=== PATIENT | female | born 1980 | race Caucasian/White ===

== ENCOUNTER → 2016-05-03 | Outpatient (CLI) | payer BC ==
--- NOTE | 2016-05-03 15:16 | XR ---
EXAMINATION TYPE: XR chest 2V DATE OF EXAM ORDERED: 05/03/2016 2:16 PM HISTORY: R05 Cough. REFERENCE: Previous study dated 10/18/2015. FINDINGS: The lungs are clear. Pleural spaces are clear. Heart size is normal. IMPRESSION: NORMAL CHEST.
== END | disposition home or self-care (01) ==
LOC: RADXRMAIN 13:58
PROVIDERS: ATTEND Pediatrics
DX: R05 Cough (principal)
CPT/HCPCS: 71020

== ENCOUNTER 2016-06-29 00:10 | Emergency (ER) | payer BC ==
[2016-06-29] MEDS ORDERED: KETOROLAC 60 MG/2 ML VIAL IM STA (01:18)
--- NOTE | 2016-06-29 01:18 | ED ---
Lower Extremity Injury HPI - General Chief Complaint: Extremity Injury, Lower Stated Complaint: L Leg/Groin Pain Time Seen by Provider: 06/29/16 00:27 Source: patient, RN notes reviewed, old records reviewed Mode of arrival: ambulatory Limitations: no limitations - History of Present Illness Initial Comments: This is a 35-year-old female with chief complaint of left thigh and groin pain. Patient states that she's had this pain a few weeks ago and then it somewhat when away. She reports that she had a massage yesterday and that seemed to make her pain worse. She denies any specific injury that caused the pain. She reports it's mainly over the medial and inner thigh. Denies any calf pain. Patient reports the pain is worse whenever she has to move her leg. Patient states that she's having a difficult time trying to ambulate. She states she did take some Motrin earlier today. She also took Flexeril. Denies any fever or chills, dysuria or hematuria. She denies any tea-colored urine. He denies any other areas of injury or pain.Patient denies any recent fever, chills, shortness of breath, chest pain, back pain, abdominal pain, nausea vomiting, numbness or tingling, dysuria or hematuria, constipation or diarrhea, headaches or visual changes, or any other current symptoms - Related Data Home Medications Medication Instructions Recorded Confirmed Levothyroxine Sodium [Synthroid] 175 mcg PO DAILY 06/24/14 06/29/16 Aspirin 324 mg PO DAILY PRN 10/18/15 06/29/16 Fluticasone Nasal [place] [Flonase 1 spray EA NOSTRIL DAILY PRN 10/18/15 06/29/16 Nasal [place]] Ibuprofen [Motrin] 200 - 400 mg PO Q6HR PRN 10/18/15 06/29/16 Previous Rx's Medication Instructions Recorded Acetaminophen-Codeine 300-30mg 1 tab PO Q4H PRN #12 tablet 06/29/16 [Tylenol #3] Ondansetron Odt [Zofran Odt] 4 mg PO Q8HR PRN #12 tab 06/29/16 Allergies Allergy/AdvReac Type Severity Reaction Status Date / Time moxifloxacin HCl AdvReac Nausea & Verified 06/29/16 00:16 [From Avelox] Vomiting Review of Systems ROS Statement: Those systems with pertinent positive or pertinent negative responses have been documented in the HPI. ROS Other: All systems not noted in ROS Statement are negative. Past Medical History Past Medical History: Thyroid Disorder Additional Past Medical History / Comment(s): depression History of Any Multi-Drug Resistant Organisms: None Reported Past Surgical History: Section, Orthopedic Surgery Past Psychological History: Depression Smoking Status: Never smoker Past Alcohol Use History: None Reported Past Drug Use History: None Reported General Exam - General Exam Comments Initial Comments: Is a 35-year-old female. Patient does not appear to be in any acute distress. Limitations: no limitations General appearance: alert, in no apparent distress Head exam: Present: atraumatic, normocephalic, normal inspection Eye exam: Present: normal appearance, PERRL, EOMI. Absent: scleral icterus, conjunctival injection, periorbital swelling ENT exam: Present: normal exam, mucous membranes moist Neck exam: Present: normal inspection. Absent: tenderness, meningismus, lymphadenopathy Respiratory exam: Present: normal lung sounds bilaterally. Absent: respiratory distress, wheezes, rales, rhonchi, stridor Cardiovascular Exam: Present: regular rate, normal rhythm, normal heart sounds. Absent: systolic murmur, diastolic murmur, rubs, gallop, clicks GI/Abdominal exam: Present: soft, normal bowel sounds. Absent: distended, tenderness, guarding, rebound, rigid Extremities exam: Present: normal inspection, full ROM, normal capillary refill. Absent: tenderness, pedal edema, joint swelling, calf tenderness Left Hip exam: Present: normal inspection, tenderness (Patient has pain and tenderness over the medial thigh inguinal region.). Absent: full ROM (Limited range of motion over the left hip and groin area due to pain.) Upper Leg exam: Present: normal inspection Knee exam: Present: normal inspection, full ROM Lower Leg exam: Present: normal inspection, full ROM Ankle exam: Present: normal inspection, full ROM Foot/Toe exam: Present: normal inspection, full ROM Neurovascular tendon exam: Present: no vascular compromise Gait: observed and normal Back exam: Present: normal inspection Neurological exam: Present: alert, oriented X3, CN II-XII intact Psychiatric exam: Present: normal affect, normal mood Skin exam: Present: warm, dry, intact, normal color. Absent: rash Course Vital Signs 06/29/16 06/29/16 00:13 02:00 Temperature 98.7 F 98.6 F Pulse Rate 109 H 98 Respiratory 20 18 Rate Blood Pressure 130/76 140/65 O2 Sat by Pulse 99 96 Oximetry Medical Decision Making - Medical Decision Making This is a 35-year-old female with a few days of left groin pain with motion. She denies any swelling or pain with palpation over the area. Only with movement. She did have massage today which made the pain worse. Patient received a femur x-ray which was negative. Urinalysis does show significant amount of red blood cells however patient is on her menstrual cycle. Patient will be discharged after receiving IM Toradol. Discussed that I can write her for Tylenol codeine that might help more with the pain as well as to apply ice or the area. Discussed follow up with an orthopedic physician or primary care provider. Patient agrees treatment plan will comply. Return parameters were discussed. Patient will also be given a Zofran starter pack and Tylenol 3 starter pack for pain which she can take with to go home with. - Lab Data Lab Results 06/29/16 Range/Units 00:13 Urine Color Yellow Urine Appearance Clear (Clear) Urine pH 6.0 (5.0-8.0) Ur Specific [place] 1.010 (1.001-1.035) Urine Protein Negative (Negative) Urine Glucose (UA) Negative (Negative) Urine Ketones Negative (Negative) Urine Blood Large H (Negative) Urine Nitrite Negative (Negative) Urine Bilirubin Negative (Negative) Urine Urobilinogen <2.0 (<2.0) mg/dL Ur Leukocyte Esterase Small H (Negative) Urine RBC 81 H (0-5) /hpf Urine WBC 10 H (0-5) /hpf Ur Squamous Epith Cells 1 (0-4) /hpf Urine Bacteria Rare H (None) /hpf Urine Mucus Rare H (None) /hpf - Radiology Data Radiology results: report reviewed Femur was x-rayed and negative for any acute process. Disposition Clinical Impression: Strain of adductor joni muscle of left lower extremity Disposition: HOME SELF-CARE Condition: Good Instructions: Groin Strain (ED) Additional Instructions: Patient advised to follow-up with orthopedic physician of symptoms continue to persist. Apply heat and ice over the area. Patient should also take anti- inflammatory medication such as Motrin. Patient needs to rest, take pain medication and muscle relaxers at home. Prescriptions: Acetaminophen-Codeine 300-30mg [Tylenol #3] 1 tab PO Q4H PRN #12 tablet PRN Reason: Pain Ondansetron Odt [Zofran Odt] 4 mg PO Q8HR PRN #12 tab PRN Reason: Nausea Referrals: Kb Brewer MD [Primary Care Provider] - 1-2 days Time of Disposition: 01:45
[2016-06-29 01:20] LABS: Appearance,Urine Clear (Clear); Bacteria,Urine Rare /hpf; Bilirubin,Urine Negative (Negative); Glucose,Urine (UA) Negative (Negative); Ketones,Urine Negative (Negative); Leukocyte Esterase,Urine Small (Negative); Mucus,Urine Rare /hpf; Nitrite,Urine Negative (Negative); Particle Count 3826; Protein,Urine Negative (Negative); RBC,Urine 81 /hpf (0-5); Squamous Epithelial Cell,Urine 1 /hpf (0-4); UA Billing (MACRO vs. MICRO) MICRO; Urobilinogen,Urine <2.0 mg/dL (<2.0); WBC,Urine 10 /hpf (0-5)
--- NOTE | 2016-06-29 01:36 | XR ---
EXAM: XR Left Femur, 2 Views CLINICAL HISTORY: Reason: Pain TECHNIQUE: Frontal and lateral views of the left femur. COMPARISON: No relevant prior studies available. FINDINGS: Bones/joints: No evidence of fracture, dislocation or bony erosion. Soft tissues: Soft tissues are radiographically unremarkable. No evidence of knee joint effusion. IMPRESSION: No significant femoral bony abnormalities.
[2016-06-29] MEDS ORDERED: ONDANSETRON 4 MG ODT STARTER PACK 2 TAB BTL PO STA (01:45)
[2016-06-29] MEDS ORDERED: ACET/COD 300 MG/30 MG STARTER PACK 6 TAB BTL PO STA (01:45)
[2016-06-29 02:01] VITALS: BP 140/65; PULSE 98; RESP 18; TEMP 98.6
== END 2016-06-29 02:01 | disposition home or self-care (01) ==
LOC: EC 00:10
DX: S86.812A Strain of other muscle(s) and tendon(s) at lower leg level, left leg, initial encounter (principal); E07.9 Disorder of thyroid, unspecified; Z79.899 Other long term (current) drug therapy; Z88.1 Allergy status to other antibiotic agents; X58.XXXA Exposure to other specified factors, initial encounter
CPT/HCPCS: 81001; 73552; 99284; 96372; J1885; S0119

== ENCOUNTER 2017-09-14 04:23 | Emergency (ER) | payer BC ==
[2017-09-14] MEDS ORDERED: ONDANSETRON 4 MG/2 ML VIAL IVP STA (04:44)
[2017-09-14 05:05] LABS: Anisocytosis Slight; Basophils % (A) 0 %; Eosinophils % (A) 1 %; HCT 34.3 % (34.0-46.0); HGB 10.9 gm/dL (11.4-16.0); Lymphocytes % (A) 22 %; MCH 23.6 pg (25.0-35.0); MCHC 31.6 g/dL (31.0-37.0); MCV 74.5 fL (80.0-100.0); Mean Platelet Volume 6.9; Microcytosis Slight; Monocytes # (A) 0.6 k/uL (0-1.0); Monocytes % (A) 6 %; Neutrophils # (A) 6.1 k/uL (1.3-7.7); Neutrophils % (A) 69 %; Platelet Count 224 k/uL (150-450); RBC 4.61 m/uL (3.80-5.40); RDW 16.1 % (11.5-15.5); WBC 8.9 k/uL (3.8-10.6)
[2017-09-14 05:19] LABS: INR 1.1 (<1.2); Partial Thromboplastin Time 24.5 sec (22.0-30.0); Prothrombin Time 10.6 sec (9.0-12.0)
[2017-09-14 05:22] LABS: ALT 55 U/L (9-52); AST 45 U/L (14-36); Albumin 4.4 g/dL (3.5-5.0); Alkaline Phosphatase 105 U/L (38-126); Amylase 47 U/L (30-110); Anion Gap 12 mmol/L; Blood Urea Nitrogen 14 mg/dL (7-17); Carbon Dioxide 22 mmol/L (22-30); Chloride 105 mmol/L (98-107); Glucose 171 mg/dL (74-99); Lipase 85 U/L (23-300); Potassium 4.5 mmol/L (3.5-5.1); Sodium 139 mmol/L (137-145); Total Bilirubin 0.4 mg/dL (0.2-1.3); Total Protein 7.5 g/dL (6.3-8.2)
--- NOTE | 2017-09-14 05:23 | ED ---
Chest Pain HPI - General Source: patient Mode of arrival: wheelchair Limitations: no limitations - History of Present Illness MD Complaint: other (Epigastric pain) Onset/Timin -: hour(s) Onset: after eating Pain Location: epigastric Pain Radiation: back Severity: moderate Quality: aching Consistency: constant Improves With: nothing Worsens With: nothing Anginal Symptoms: nausea, vomiting Treatments Prior to Arrival: none <Carmelo Fritz - Last Filed: 09/14/17 05:21> <Ryan Arias - Last Filed: 09/14/17 08:18> - General Chief Complaint: Chest Pain Stated Complaint: Nausea/Abdominal Pain Time Seen by Provider: 09/14/17 04:30 - Related Data Home Medications Medication Instructions Recorded Confirmed Levothyroxine Sodium [Synthroid] 175 mcg PO DAILY 06/24/14 06/29/16 Aspirin 324 mg PO DAILY PRN 10/18/15 06/29/16 Fluticasone Nasal [place] [Flonase 1 spray EA NOSTRIL DAILY PRN 10/18/15 06/29/16 Nasal [place]] Ibuprofen [Motrin] 200 - 400 mg PO Q6HR PRN 10/18/15 06/29/16 Previous Rx's Medication Instructions Recorded Acetaminophen-Codeine 300-30mg 1 tab PO Q4H PRN #12 tablet 06/29/16 [Tylenol #3] Ondansetron Odt [Zofran Odt] 4 mg PO Q8HR PRN #12 tab 06/29/16 Allergies Allergy/AdvReac Type Severity Reaction Status Date / Time moxifloxacin HCl AdvReac Nausea & Verified 09/14/17 04:30 [From Avelox] Vomiting Review of Systems ROS Other: All systems not noted in ROS Statement are negative. Constitutional: Denies: fever, chills, weakness Respiratory: Denies: cough, dyspnea Cardiovascular: Reports: chest pain. Denies: palpitations, orthopnea, edema, syncope Gastrointestinal: Reports: nausea, vomiting. Denies: diarrhea, hematemesis, melena, hematochezia Genitourinary: Denies: dysuria, hematuria Musculoskeletal: Denies: back pain Skin: Denies: rash Neurological: Denies: headache, weakness, numbness <Carmelo Fritz - Last Filed: 09/14/17 05:21> ROS Other: All systems not noted in ROS Statement are negative. <Ryan Arias - Last Filed: 09/14/17 08:18> ROS Statement: Those systems with pertinent positive or pertinent negative responses have been documented in the HPI. EKG Findings - EKG Results: EKG: interpreted by ERMD, sinus rhythm (Rate 87 bpm), normal axis, normal ST/T - Blocks, [place], Hypertrophy, ST Abn: AV and intraventricular conduction: right bundle branch block (fixed/ intermittent, complete/incomplete) (Incomplete) <Carmelo Fritz - Last Filed: 09/14/17 05:21> Past Medical History Past Medical History: Diabetes Mellitus, Thyroid Disorder Additional Past Medical History / Comment(s): depression History of Any Multi-Drug Resistant Organisms: None Reported Past Surgical History: Section, Orthopedic Surgery Past Psychological History: Depression Smoking Status: Never smoker Past Alcohol Use History: None Reported Past Drug Use History: None Reported <Carmelo Fritz - Last Filed: 09/14/17 05:21> General Exam Limitations: no limitations General appearance: alert, in no apparent distress, obese Head exam: Present: atraumatic Eye exam: Present: normal appearance. Absent: scleral icterus, conjunctival injection ENT exam: Present: normal oropharynx Respiratory exam: Present: normal lung sounds bilaterally. Absent: respiratory distress, wheezes, rales, rhonchi, stridor Cardiovascular Exam: Present: regular rate, normal rhythm, normal heart sounds. Absent: systolic murmur, diastolic murmur, rubs, gallop GI/Abdominal exam: Present: soft, tenderness (Mild epigastric and right upper quadrant tenderness without rebound or guarding). Absent: distended, guarding, rebound, rigid, mass, pulsatile mass, hernia Extremities exam: Present: normal inspection, normal capillary refill. Absent: pedal edema, calf tenderness Back exam: Present: normal inspection. Absent: CVA tenderness (R), CVA tenderness (L) Neurological exam: Present: alert Skin exam: Present: warm, dry, intact, normal color. Absent: rash <Carmelo Fritz - Last Filed: 09/14/17 05:21> Vital Signs 09/14/17 09/14/17 04:27 06:14 Temperature 98.3 F 98.3 F Pulse Rate 93 100 Respiratory 17 18 Rate Blood Pressure 165/94 140/85 O2 Sat by Pulse 100 100 Oximetry Chest Pain MDM <JohnyCarmelo lugo - Last Filed: 09/14/17 05:21> <Ryan Arias - Last Filed: 09/14/17 08:18> - [facility] 37 female with epigastric pain and vomiting. Patient's care is signed out at shift change. She did complain of chest pain, when she points to her pain is predominantly epigastric. She states she had a fullness in her abdomen as well as several episodes of vomiting. Patient's symptoms are significantly improved without treatment at the time of my evaluation. She has not had pain medication or antiemetics. Patient's symptoms were constant for 15-16 hours prior to arrival. Troponin is negative which is very reassuring. Patient does have mildly elevated AST and ALT at 45 and 55. Ultrasound is obtained of the gallbladder which shows sludge and mildly dilated common bile duct with no apparent stone. Patient's symptoms did begin after eating. This likely indicates biliary colic. Patient is offered observation for both serial cardiac enzymes and general surgery consultation. She declines. She prefers outpatient follow-up. I have very low suspicion for anything cardiac in this patient. She will be discharged with outpatient general surgery follow-up. ( Ryan Arias) Disposition <Carmelo Fritz - Last Filed: 09/14/17 05:21> Is patient prescribed a controlled substance at d/c from ED?: No Time of Disposition: 08:18 <Ryan Arias - Last Filed: 09/14/17 08:18> Clinical Impression: Chest pain, Biliary colic Disposition: HOME SELF-CARE Condition: Good Instructions: Chest Pain (ED), Biliary Colic (ED) Referrals: Kb Brewer MD [Primary Care Provider] - 1-2 days Jhonatan Henley MD [Medical Doctor] - 1-2 days
[2017-09-14 05:26] LABS: Creatine Kinase 132 U/L (30-135)
[2017-09-14 05:39] LABS: Creatine Kinase MB 0.7 ng/mL (0.0-2.4); Troponin I <0.012 ng/mL (0.000-0.034)
--- NOTE | 2017-09-14 05:57 | XR ---
EXAMINATION TYPE: XR chest 1V portable DATE OF EXAM: 09/14/2017 COMPARISON: 05/03/2016 HISTORY: Pain TECHNIQUE: Single frontal view of the chest is obtained. FINDINGS: Heart and mediastinum are normal. Lungs are clear. Diaphragm is normal. Bony thorax appear s normal. IMPRESSION: Normal chest. No change.
--- NOTE | 2017-09-14 07:54 | US ---
EXAMINATION TYPE: US abdomen limited DATE OF EXAM: 09/14/2017 COMPARISON: NONE CLINICAL HISTORY: Pain, attention RUQ. nausea, left back pain EXAM MEASUREMENTS: Liver Length: 21.1 cm Gallbladder Wall: 0.2 cm CBD: 0.7 cm Right Kidney: 11.6 x 5.7 x 4.4 cm *overlying bowel gas limits exam along with habitus Pancreas: limited views seen appear wnl Liver: difficult to penetrate and enlarged Gallbladder: mobile sludge seen with no obvious stone present Evidence for sonographic Abad's sign: NO CBD: upper limits of normal for since Right Kidney: wnl Limited views of the pancreas are unremarkable. The liver is enlarged measuring 21 cm. It is echogenic and likely fatty infiltrated. There is sludge within the gallbladder. The gallbladder wall measures 2 mm. The distal common hepatic duct measures 7 mm. There is no evidence of a sonographic Abad's sign. The right kidney is unremarkable. IMPRESSION: GALLBLADDER SLUDGE WITH A DILATED DISTAL COMMON HEPATIC DUCT.
[2017-09-14 08:31] VITALS: BP 116/65; PULSE 76; RESP 16; TEMP 97.5
== END 2017-09-14 08:40 | disposition home or self-care (01) ==
LOC: EC 04:23
DX: K80.50 Calculus of bile duct without cholangitis or cholecystitis without obstruction (principal); R74.0 Nonspecific elevation of levels of transaminase and lactic acid dehydrogenase [LDH]; E07.9 Disorder of thyroid, unspecified; Z79.899 Other long term (current) drug therapy; Z88.1 Allergy status to other antibiotic agents; Z53.29 Procedure and treatment not carried out because of patient's decision for other reasons
CPT/HCPCS: 36415; 71045; 76705; 80053; 82150; 82550; 82553; 83690; 83735; 84484; 85025; 85610; 85730; 93005; 99285

== ENCOUNTER 2019-07-12 09:55 | Emergency (ER) | payer BC ==
[2019-07-12 10:01] VITALS: TEMP 98
[2019-07-12] MEDS ORDERED: ASPIRIN 81 MG PO STA (10:25)
[2019-07-12 10:27] LABS: Basophils % (A) 1 %; Eosinophils # (A) 0.1 k/uL (0-0.7); Eosinophils % (A) 2 %; HCT 36.3 % (34.0-46.0); HGB 11.3 gm/dL (11.4-16.0); Hypochromasia Slight; Lymphocytes # (A) 1.8 k/uL (1.0-4.8); Lymphocytes % (A) 23 %; MCH 23.7 pg (25.0-35.0); MCHC 31.1 g/dL (31.0-37.0); MCV 76.1 fL (80.0-100.0); Mean Platelet Volume 8.6; Microcytosis Slight; Monocytes # (A) 0.5 k/uL (0-1.0); Monocytes % (A) 6 %; Neutrophils # (A) 5.2 k/uL (1.3-7.7); Neutrophils % (A) 67 %; Platelet Count 243 k/uL (150-450); RBC 4.76 m/uL (3.80-5.40); RDW 15.9 % (11.5-15.5); WBC 7.8 k/uL (3.8-10.6)
--- NOTE | 2019-07-12 10:29 | XR ---
EXAMINATION TYPE: XR chest 2V DATE OF EXAM: 07/12/2019 COMPARISON: Prior chest x-ray 09/14/2017 HISTORY: Chest pain TECHNIQUE: Frontal and lateral views of the chest are obtained. FINDINGS: There is no focal air space opacity, pleural effusion, or pneumothorax seen. The cardiac silhouette size is within normal limits. There are overlying cardiac leads. The osseous structures a re intact. IMPRESSION: No acute cardiopulmonary process.
[2019-07-12 10:35] LABS: Partial Thromboplastin Time 24.7 sec (22.0-30.0); Prothrombin Time 10.4 sec (9.0-12.0)
[2019-07-12 10:39] LABS: ALT 64 U/L (4-34); AST 63 U/L (14-36); African American GFR (CKD) >90 (>60 ml/min/1.73 sqM); Albumin 4.5 g/dL (3.5-5.0); Alkaline Phosphatase 136 U/L (38-126); Anion Gap 10 mmol/L; Blood Urea Nitrogen 10 mg/dL (7-17); Calcium 9.5 mg/dL (8.4-10.2); Carbon Dioxide 23 mmol/L (22-30); Chloride 104 mmol/L (98-107); Glucose 197 mg/dL (74-99); Magnesium 2.2 mg/dL (1.6-2.3); Non-African American GFR(CKD) >90 (>60 ml/min/1.73 sqM); Potassium 4.5 mmol/L (3.5-5.1); Sodium 137 mmol/L (137-145); Total Bilirubin 0.4 mg/dL (0.2-1.3); Total Protein 7.9 g/dL (6.3-8.2)
--- NOTE | 2019-07-12 11:18 | ED ---
Chest Pain HPI - General Chief Complaint: Chest Pain Stated Complaint: Chest pain Time Seen by Provider: 07/12/19 10:02 Source: patient Mode of arrival: ambulatory Limitations: no limitations - History of Present Illness Initial Comments: 39-year-old female presents today for chief complaint of 4 days of left sided chest pressure and left arm tingling. Patient states that for 4 days she has had on and off left-sided chest pressure denies any specific exacerbating event she states she has not noticed it particularly with with exertion it just comes and goes randomly. Patient states she feels a pressure and fullness sensation in the left-sided back as well as she denies a ripping tearing pain or sharp pains with deep inspiration. Patient states she also has a tingling sensation in the left arm. Denies jaw or neck pain. Admits to some slight nausea today. Patient denies syncope. Patient denies vomiting, diarrhea, fevers, cough, such as hormone use, hematemesis, unilateral leg swellling, history DVT/PE, , immobilization or surgery. Patient denies SOB. Patient states that the pain did not get significant worse or more frequent today but due to persistence she presented to the ER today for evaluation Upon arrival patient appears well there is no signs of acute distress. - Related Data Home Medications Medication Instructions Recorded Confirmed Levothyroxine Sodium [Synthroid] 175 mcg PO DAILY 06/24/14 06/29/16 Aspirin 324 mg PO DAILY PRN 10/18/15 06/29/16 Fluticasone Nasal [place] [Flonase 1 spray EA NOSTRIL DAILY PRN 10/18/15 06/29/16 Nasal [place]] Ibuprofen [Motrin] 200 - 400 mg PO Q6HR PRN 10/18/15 06/29/16 Previous Rx's Medication Instructions Recorded Acetaminophen-Codeine 300-30mg 1 tab PO Q4H PRN #12 tablet 06/29/16 [Tylenol #3] Ondansetron Odt [Zofran Odt] 4 mg PO Q8HR PRN #12 tab 06/29/16 Allergies Allergy/AdvReac Type Severity Reaction Status Date / Time moxifloxacin HCl AdvReac Nausea & Verified 07/12/19 10:01 [From Avelox] Vomiting Review of Systems ROS Statement: Those systems with pertinent positive or pertinent negative responses have been documented in the HPI. ROS Other: All systems not noted in ROS Statement are negative. EKG Findings - EKG Comments: EKG Findings:: Ventricular rate 80 bpm, LA interval 134 ms, QRS duration 86 seconds, QT/QTC 392/474 ms. This is normal sinus. There is no ST elevation or depression. Some noted Q waves. Past Medical History Past Medical History: Diabetes Mellitus, Thyroid Disorder Additional Past Medical History / Comment(s): depression History of Any Multi-Drug Resistant Organisms: None Reported Past Surgical History: Section, Orthopedic Surgery Past Psychological History: Depression Smoking Status: Never smoker Past Alcohol Use History: None Reported Past Drug Use History: None Reported General Exam - General Exam Comments Initial Comments: General: The patient is awake and alert, in no distress, and does not appear acutely ill. Eye: Pupils are equal, round and reactive to light, extra-ocular movements are intact. No nystagmus. There is normal conjunctiva bilaterally. No signs of icterus. Ears, nose, mouth and throat: There are moist mucous membranes and no oral lesions. Neck: The neck is supple, there is no tenderness or JVD. Cardiovascular: There is a regular rate and rhythm. No murmur, rub or gallop is appreciated. Respiratory: Lungs are clear to auscultation, respirations are non-labored, breath sounds are equal. No wheezes, stridor, rales, or rhonchi. Gastrointestinal: Soft, non-distended, non-tender abdomen without masses or organomegaly noted. There is no rebound or guarding present. Musculoskeletal: Normal ROM, no tenderness. Strength 5/5. Sensation intact. Radial and DP pulses equal bilaterally 2+. Neurological: A&O x 3. CN II-XII intact, There are no obvious motor or sensory deficits. Coordination appears grossly intact. Speech is normal. Skin: Skin is warm and dry and no rashes or lesions are noted. Pain no lower extremity swelling or edema. No calf swelling Psychiatric: Cooperative, appropriate mood & affect, normal judgment. Limitations: no limitations Course Vital Signs 07/12/19 07/12/19 07/12/19 09:58 10:01 10:16 Temperature 98 F Pulse Rate 91 94 Respiratory 18 20 Rate Blood Pressure 136/89 O2 Sat by Pulse 100 99 Oximetry 07/12/19 07/12/19 07/12/19 10:30 11:00 11:01 Temperature Pulse Rate 90 96 96 Respiratory 20 Rate Blood Pressure 141/85 141/85 O2 Sat by Pulse 99 99 99 Oximetry 07/12/19 07/12/19 07/12/19 11:30 12:00 12:30 Temperature Pulse Rate 89 89 Respiratory 20 Rate Blood Pressure 129/68 135/74 O2 Sat by Pulse 99 99 Oximetry 07/12/19 07/12/19 07/12/19 13:00 14:00 14:12 Temperature Pulse Rate 89 89 89 Respiratory 20 20 Rate Blood Pressure 116/67 116/67 O2 Sat by Pulse 99 99 99 Oximetry Chest Pain MDM - MDM 39-year-old female presents today for chief complaint of chest pain ongoing for 4 days. Initial troponin negative EKG no ST elevation. Patient_[id number] family history, moderately suspicious story and risk factors. Patient will be discharged at this time with primary care follow-up instruction for outpatient stress testing. Patient's dimer was elevated however did have low suspicion of DVT prior to testing CTA was negative for pulmonary embolism. Discussed the case attended by Dr. Gonsalves was agreeable to Plan discharge at this time Disposition Clinical Impression: Chest pain Disposition: HOME SELF-CARE Condition: Good Instructions (If sedation given, give patient instructions): Chest Pain (ED) Additional Instructions: Please use medication as discussed. Please follow-up with family doctor in the next 2 days, recommend outpatient stress test and echocardiogram. Please return to emergency room if the symptoms increase or worsen or for any other concerns. Is patient prescribed a controlled substance at d/c from ED?: No Referrals: Kb Brewer MD [Primary Care Provider] - 1-2 days Time of Disposition: 13:43
[2019-07-12 11:23] VITALS: RESP 20
--- NOTE | 2019-07-12 12:27 | CT ---
EXAMINATION TYPE: CT chest angio for PE DATE OF EXAM: 07/12/2019 COMPARISON: NONE HISTORY: Chest pain, left arm pain and back pain CT DLP: 659.2 mGycm. Automated Exposure Control for Dose Reduction was Utilized. CONTRAST: CTA scan of the thorax is performed with IV Contrast, patient injected with 100 mL of Isovue 370, pul monary embolism protocol. MIP Images are created on CT scanner and reviewed. FINDINGS: LUNGS: The lungs are grossly clear, there is no concerning parenchymal mass or nodule identified. T here is no pleural effusion or pneumothorax seen. The tracheobronchial tree is patent. MEDIASTINUM: There is satisfactory enhancement of the pulmonary artery and its branches, there is no CT evidence for pulmonary embolism. There are no greater than 1 cm hilar or mediastinal lymph nodes. No cardiomegaly or pericardial effusion is seen. Strand-like opacity seen in the superior anterior mediastinum most commonly relates to minimal residual thymic tissue. Phase of contrast limits evalua tion for coronary atherosclerosis however no significant atherosclerosis is seen on the examination. Aortic root is limited for dissection. No dissection seen in the remainder of the thoracic aorta nor aneurysm. OTHER: There is low-attenuation of the hepatic parenchyma most commonly related to hepatic steatosis and limiting evaluation for hepatic masses. Entirety of the liver is not seen. Small splenule is note d adjacent to the [place] spleen. Mild multilevel degenerative change of the spine and punctate mid th oracic probable bone island IMPRESSION: 1. No evidence of pulmonary embolus. No significant coronary artery calcifications. No aneurysmal dil atation of the thoracic aorta. No dissection seen in the ascending thoracic aorta, aortic root or ervin cending thoracic aorta. Aortic root is limited by motion. 2. Hepatic steatosis.
[2019-07-12 12:55] VITALS: PULSE 89
[2019-07-12 14:12] VITALS: BP 116/67
== END 2019-07-12 14:14 | disposition home or self-care (01) ==
LOC: EC 09:55
DX: R07.89 Other chest pain (principal); R20.2 Paresthesia of skin; R11.0 Nausea; R79.89 Other specified abnormal findings of blood chemistry; E07.9 Disorder of thyroid, unspecified; Z79.890 Hormone replacement therapy; Z88.1 Allergy status to other antibiotic agents
CPT/HCPCS: 99285; 36415; 93005; 85379; 80053; 83735; 84484; 85025; 85610; 85730; 71046; 71275; Q9967

== ENCOUNTER → 2024-03-19 | Outpatient (CLI) | payer BC ==
--- NOTE | 2024-03-19 15:22 | CT ---
EXAMINATION TYPE: CT heart w calcium score DATE OF EXAM: 03/19/2024 COMPARISON: None CLINICAL INDICATION: Female, 43 years old with history of E11.65 TYPE 2 DIABETES MELLITUS WITH M79.10 M25.50; PHH, family hx heart disease TECHNIQUE: Prospective Gating was used. Slice thickness: 3mm. Density threshold (HU): 130, Pixel threshold: 3, Algorithm: discrete. CT DLP: 158.5 mGycm Automated exposure control for dose reduction was used. FINDINGS: CT CALCIUM SCORING Coronary calcium is a marker for plaque (fatty deposits) in a blood vessel or atherosclerosis (harden ing of the arteries). The presence and amount of calcium detected in a coronary artery by the CT sca n, indicates the presence and amount of atherosclerotic plaque. These calcium deposits appear years before the development of heart disease symptoms such as chest pain and shortness of breath. A calcium score is computed for each of the coronary arteries based upon the volume and density of th e calcium deposits. This can be referred to as your calcified plaque burden. It does not correspond directly to the percentage of narrowing in the artery but does correlate with the severity of the un derlying coronary atherosclerosis. RESULTS Region: LM Calcium Score ([place]): 0 Volume (mm3): 0 Mass (g): 0 Region: RCA Calcium Score ([place]): 0 Volume (mm3): 0 Mass (g): 0 Region: LAD Calcium Score ([place]): 0 Volume (mm3): 0 Mass (g): 0 Region: CX Calcium Score ([place]): 0 Volume (mm3): 0 Mass (g): 0 Region: PDA Calcium Score ([place]): 0 Volume (mm3): 0 Mass (g): 0 Total: Calcium Score ([place]): 0 Volume (mm3): 0 Mass (g): 0 INCIDENTAL: No significant incidental abnormality is seen. IMPRESSION: Calcium Score: 0 Implication: No identifiable plaque. Risk of Coronary Artery Disease: Very low, generally less than 5%. [facility], , 03/19/2024 3:20 PM
== END | disposition home or self-care (01) ==
LOC: RADCTMAIN 11:27
PROVIDERS: ATTEND Pediatrics
DX: I25.10 Atherosclerotic heart disease of native coronary artery without angina pectoris (principal); E11.65 Type 2 diabetes mellitus with hyperglycemia; M79.10 Myalgia, unspecified site; M25.50 Pain in unspecified joint; Z82.49 Family history of ischemic heart disease and other diseases of the circulatory system
CPT/HCPCS: 75571